=== PATIENT | female | born 1950 | race Two or more races ===

== ENCOUNTER → 2024-02-20 | Outpatient (CLI) | payer OTHER ==
[2024-02-20 11:48] LABS: Urine Bacteria None Seen /hpf (None Seen)
[2024-02-20 12:22] LABS: Urine Blood Negative /uL (Negative); Urine Clarity Clear (Clear); Urine Color Colorless (Yellow); Urine Protein, UAD Negative (Negative); Urine Specific Gravity 1.001 (1.001-1.035); Urine Urobilinogen Normal (Negative); Urine WBC <1 /hpf (0 - 5)
[2024-02-20 12:44] LABS: % Iron Saturation 39.1 % (15-50)
[2024-02-20 13:04] LABS: Alanine Aminotransferase 20 U/L (7-40); Albumin 4.4 g/dL (3.2-4.8); Alkaline Phosphatase 157 U/L (46-116); Anion Gap 6 (5-15); Aspartate Aminotransferase 12 U/L (13-40); Calcium 10.3 mg/dL (8.7-10.4); Carbon Dioxide 26 mmol/L (20-30); Chloride 93 mmol/L (98-107); Cholesterol 124 mg/dL (< 200); Creatine Kinase IFCC 59 U/L (34-145); Glucose 110 mg/dL (74-106); HDL Cholesterol 48 mg/dL (40-59); LDL Cholesterol 59 mg/dL (< 100); Potassium 3.7 mmol/L (3.5-5.1); Sodium 125 mmol/L (136-145); Triglycerides 73 mg/dL (< 150)
[2024-02-20 13:05] LABS: Bilirubin, Total 0.5 mg/dL (0.2-1.0); Total Protein 6.7 g/dL (5.7-8.2)
[2024-02-20 13:07] LABS: BUN/Creatinine Ratio 5.6 (10.0-20.0); Blood Urea Nitrogen < 5 mg/dL (9-23)
[2024-02-20 16:54] LABS: T3 Total 1.33 ng/mL (0.60-1.81)
[2024-02-20 16:57] LABS: Ferritin 31.6 ng/mL (10-291)
[2024-02-20 18:07] LABS: Folate (Folic Acid) 1.75 ng/mL (>5.38)
== END | disposition home or self-care (01) ==
LOC: LAB 11:31
PROVIDERS: ATTEND Internal Medicine
DX: Z12.11 Encounter for screening for malignant neoplasm of colon (principal); Z00.00 Encounter for general adult medical examination without abnormal findings; E78.5 Hyperlipidemia, unspecified
CPT/HCPCS: 36415; 80053; 80061; 81001; 82306; 82550; 82607; 82728; 82746; 83540; 83550; 84436; 84443; 84480; 87086